=== PATIENT | male | born 1955 | race Caucasian/White ===

== ENCOUNTER 2017-01-28 12:11 | Day surgery (SDC) | payer OTHER ==
[2017-01-28] MEDS ORDERED: MIDAZOLAM 2 MG/2 ML VIAL IVP ONE (12:14)
[2017-01-28] MEDS ORDERED: BENZOCAINE UNIT DOSE SPRAY HURRICAINE MM ONE (12:14)
[2017-01-28] MEDS ORDERED: NS 500 ML IV ONE (12:14)
[2017-01-28] MEDS ORDERED: fentaNYL 100 MCG/2 ML INJ IVP ONE (12:14)
[2017-01-28] MEDS ORDERED: PROPOFOL 200 MG/20 ML VIAL IVP ONE (12:14)
--- NOTE | 2017-01-28 12:31 | CPEKG ---
Heart Rate: 79 RR Interval: 759 QRSD Interval: 98 QT Interval: 472 QTC Interval: 542 QRS [place]: 86 T Wave [place]: -70 EKG Severity - ABNORMAL ECG - EKG Impression: A-FLUTTER W/ VARIED AV BLOCK, A-RATE 319 EKG Impression: INFERIOR INFARCT, ACUTE EKG Impression: PROLONGED QT INTERVAL Electronically Signed By: Navid Radford 28-Jan-2017 15:08:40
[2017-01-28 12:55] LABS: INR 1.17 (0.83-1.16); PROTIME(PATIENT) 14.9 SEC (12.0-15.0)
[2017-01-28 12:56] LABS: APTT 34.4 SEC (23.0-38.0)
[2017-01-28 12:59] LABS: ANION GAP 8 mEq/L (8-16); CALCIUM 9.5 mg/dL (8.5-10.4); CARBON DIOXIDE 24 mEq/l (22-31); CHLORIDE 107 mEq/L (97-110); CREATININE 0.9 mg/dL (0.7-1.3); GLOMERULAR FILTRATION RATE > 60; GLUCOSE 85 mg/dL (70-100); MAGNESIUM 2.2 mg/dL (1.6-2.3); POTASSIUM 4.8 mEq/L (3.5-5.2); SODIUM 139 mEq/L (134-144)
[2017-01-28] MEDS ORDERED: PROPOFOL 200 MG/20 ML VIAL ONE ×2 (13:27)
--- NOTE | 2017-01-28 14:15 | CPEKG ---
Heart Rate: 62 RR Interval: 968 P-R Interval: 160 QRSD Interval: 98 QT Interval: 444 QTC Interval: 451 P [place]: 90 QRS [place]: 87 T Wave [place]: 51 EKG Severity - ABNORMAL ECG - EKG Impression: SINUS RHYTHM EKG Impression: RIGHT ATRIAL ABNORMALITY EKG Impression: CONSIDER INFERIOR INFARCT, OLD Electronically Signed By: Navid Radford 28-Jan-2017 15:08:29
--- NOTE | 2017-01-28 14:15 | PDTEE1 ---
ATIF Cardioversion Procedure Procedure: Electrical Cardioversion, Transesophageal Echo Indications: Atrial Fibrillation Consent: Signed and in Chart Anticoagulation: Eliquis Procedural Details: Consent was signed and placed in the chart. PROCEDURE: (1) Sedation by anesthetia (2) ATIF (3) Cardioversion INDICATION: (1) Atrial flutter (rate of 140 -150 bpm) PROCEDURE DETAILS: After consent was obtained, the patient had Hurricaine spray for local anesthetic. Patient was rotated to the left lateral position with chin to the left clavicle. Light sedation was implemented, and the ATIF probe was placed without difficulty. Standard views were obtained. Prelim echo report: Normal left ventricular systolic ejection fraction Mild biatrial dilation Grossly normal mitral valve Trileaflet aortic valve with trace/mild insufficiency (no sclerosis/stenosis) Thickened tricuspid valve with mobile echo lucency (on the ventricular side) Grossly normal pulmonic valve No thrombus to the left atrial appendage (+) smoke (spontaneous contrast) Bubble contrast injection without right to left passage Given a lack of thrombus, we opted to proceed with cardioversion. Single shock 200J SYNC was used with conversion from atrial flutter (150 bpm) to normal sinus rhythm 55 bpm. No complications were noted. Patient tolerated procedure without issues. Recommendations for patient to have MPI testing given narrowing to the coronary artery (LAD and LCX) that happened to be noted with this testing. Synchronized cardioversion attempt #1: 200J Results: Normal sinus rhythm Conclusions: Successful ATIF Cardioversion Conclusion Comment: (1) Normal sinus rhythm. (2) Recommendations for patient to have MPI testing given what appears to be soft plaque to the LAD and LCX vessels. (3) Maintain therapy on Eliquis for CVA prophylaxis
--- NOTE | 2017-01-29 12:40 | ECHO ---
[id number] + + [address] : : [facility] [address] : : [phone] + Transesophageal Echocardiographic Report + ----+ :Name: ANTONIO ADAMSON BStudy Date: 01/28/2017 01:24 PM : : Hospital Admission Number: [id number] Location: [facility]: :[facility]: 1955 Gender: Male : :Age: 61 yrs Race: WH : :Reason For Study: Atrial flutter : + ----+ Left Ventricle The left ventricle is not well visualized. There is no thrombus. There is normal left ventricular wall thickness. Left ventricular systolic function is normal. The left ventricular wall motion is normal. Right Ventricle The right ventricle is grossly normal size. The right ventricular systolic function is normal. The right ventricular wall motion is normal. Atria Injection of contrast documented no interatrial shunt. No thrombus is detected in the left atrial appendage. The left atrial size is normal. Right atrial size is normal. Mitral Valve The mitral valve is normal in structure and function. There is trace mitral regurgitation. Tricuspid Valve Tricuspid valve appears to have elongated chordae tendinae. There is trace tricuspid regurgitation. Aortic Valve The aortic valve is trileaflet. The aortic valve opens well. Trace to mild aortic regurgitation. Pulmonic Valve The pulmonic valve is normal in structure and function. There is no pulmonic valvular regurgitation. Vessels The aortic root is normal size. Pericardium There is no pericardial effusion. There is no pleural effusion. Procedure With heart rate, blood pressure and oximetry monitered the patient was administered IV Versed, fentanyl and the bite block in place, the throat was anesthetized with topical spray. The Omniplane transesophageal probe was passed without difficulty. Conclusion A 2D transesophageal echocardiogram with color flow Doppler was performed. Left ventricular systolic function is normal. Injection of contrast documented no interatrial shunt. No thrombus is detected in the left atrial appendage. There is trace mitral regurgitation. Tricuspid valve appears to have elongated chordae tendinae. There is trace tricuspid regurgitation. Trace to mild aortic regurgitation. The left ventricular wall motion is normal. The left ventricle is not well visualized. There is no pleural effusion. Cardioversion was performed given ongoing atrial flutter. Final Reading Physician: Deja Khan signed on 01/29/2017 12:39 PM Ordering Physician: Eb Francis Performed By: Eb Francis MD
== END 2017-01-28 15:20 | disposition home or self-care (01) ==
LOC: FCATH 12:11
PROVIDERS: ATTEND Internal Medicine Cardiovascular Disease
PROC: 5A2204Z Restoration of Cardiac Rhythm, Single (ICD-10-PCS; principal; 2017-01-28)
PROC: B245ZZ4 Ultrasonography of Left Heart, Transesophageal (ICD-10-PCS; principal; 2017-01-28)
DX: I48.92 Unspecified atrial flutter (principal); E78.5 Hyperlipidemia, unspecified; I25.10 Atherosclerotic heart disease of native coronary artery without angina pectoris; E03.9 Hypothyroidism, unspecified
CPT/HCPCS: J2704